=== PATIENT | male | born 1965 | race Caucasian/White ===

== ENCOUNTER → 2021-05-28 14:51 | Outpatient (BNVA) | payer OTHER, SELFPAY | PROVIDERS: Family Provider Family Medicine; PCP Family Medicine; Visit Provider Surgery | DX: Z20.822 Contact with and (suspected) exposure to COVID-19 (principal); Z11.52 Encounter for screening for COVID-19 | CPT/HCPCS: 87635 ==

== ENCOUNTER 2021-06-03 10:03 | Day surgery (SDC) | payer OTHER, SELFPAY ==
[2021-05-31 12:40] VITALS: BMI 31.9
[2021-06-03] VITALS (8 sets, daily range): BP systolic 137–165; BP diastolic 84–87; PULSE 58–64; RESP 12–18; TEMP 36.1–36.4; O2SAT 95–99
--- NOTE | 2021-06-03 10:12 | P.HP_ITS ---
Same Day Surgery H&P Indication for Procedure/HPI DATE OF PROCEDURE: June 03, 2021 CHIEF COMPLAINT/INDICATIONFOR SURGICAL PROCEDURE: Incarcerated incisional hernia PREOP DIAGNOSIS: incisional hernia PLANNED PROCEDRUE: Operation Date: 06/03/21 10:40 Proposed Procedures p Incisional Hernia Repair w/ Mesh [id number] k43.2(Not Applicable) - Addison Voss MD Medications/Allergies* Home Medications Medication Instructions Recorded Confirmed Type No Known Home Medications 04/29/21 05/31/21 History Allergies/Adverse Reactions Allergy/AdvReac Type Severity Reaction Status Date / Time No Known Allergies Allergy Verified 04/30/21 10:28 Pertinent History/Comorbid Conditions* Medical History (Updated 04/30/21 @ 10:55 by Addison Voss MD) Arthritis History of hepatitis C Surgical History (Updated 04/30/21 @ 10:45 by Addison Voss MD) History of colonoscopy (~2019) History of laparoscopic cholecystectomy 2008 Family History (Updated 04/30/21 @ 10:31 by Melissa Doll) Denies family history of Diabetes CAD (coronary artery disease) Dementia Chronic kidney disease (CKD) Lung disease Cancer Stroke Social History Smoking and tobacco status: never smoked Second hand smoke exposure: No Alcohol intake: never Lives independently: Yes Household members: spouse Marital status: Pertinent Exam Findings alert, oriented x 3 and regular rate & rhythm Recommendations Surgery/Procedure today Coding Level of Care Code Acute Sap Integration Architect for Vipul Pugh
[2021-06-03] MEDS: sodium chloride 0.9% 1,000 ML 30 ML IV (10:37)
--- NOTE | 2021-06-03 10:40 | ANES.PREANE2 ---
Pre-Anesthetic Assessment Pre-Anesthetic Assessment: Height/Weight: Height 1.73 m Weight 95.254 kg Temp Pulse Resp BP Pulse Ox 97.0 F L 58 L 18 165/84 97 06/03/21 10:14 06/03/21 10:14 06/03/21 10:14 06/03/21 10:14 06/03/21 10:14 Preop Diagnosis: incisional hernia Proposed Procedure: Operation Date: 06/03/21 10:40 Proposed Procedures p Incisional Hernia Repair w/ Mesh [id number] k43.2(Not Applicable) - Addison Voss MD Familial anesthetic complications: None Was Clonidine taken within 24 hours: N/A Last intake: Intake Last Liquid Date 06/02/21 Last Liquid Time 21:00 Last Solid Date 06/02/21 Last Solid Time 20:00 Social: Social History: No alcohol and No tobacco Exam: Pre-Anes Outpt Exam: alert, oriented x 3, clear to auscultation bilaterally and regular rate & rhythm Airway: Cervical ROM: WNL MP: 2 Dentition: Full Anesthetic Plan: ASA status: 1 Anesthesia: General Risk of > 500 ml blood loss (7ml/kg in children): No Meds/Allergies Current Medications: Current Medications Generic Name Dose Route Start Last Admin Trade Name Freq PRN Reason Stop Dose Admin Sodium Chloride 1,000 mls @ 30 ml s/hr 06/03/21 10:15 06/03/21 10:37 Sodium Chloride 0.9% IV 06/04/21 10:14 30 mls/hr .Q24H SUHA Administration PFSH Anesthesia PFSH: Medical History (Updated 04/30/21 @ 10:55 by Addison Voss MD) Arthritis History of hepatitis C Surgical History (Updated 04/30/21 @ 10:45 by Addison Voss MD) History of colonoscopy (~2019) History of laparoscopic cholecystectomy 2009 Family History (Updated 04/30/21 @ 10:31 by Melissa Doll) Denies family history of Diabetes CAD (coronary artery disease) Dementia Chronic kidney disease (CKD) Lung disease Cancer Stroke Social History (Updated 04/30/21 @ 10:32 by Melissa Doll) Smoking and tobacco status: never smoked Second hand smoke exposure: No Alcohol intake: never Lives independently: Yes Household members: spouse Marital status: Data Anesthesia Cardiac Studies: No Data to Display
[2021-06-03] MEDS: fentaNYL 50 mcg/mL INJ 2mL IVP ×2 (11:46→11:51)
--- NOTE | 2021-06-03 11:46 | P.PCN_ITS ---
PACU note PACU note: VSS, Good respiratory effort, report to [employer] Post-Anesthesia Exam: awake
--- NOTE | 2021-06-03 11:46 | PM.PACU ---
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
[2021-06-03] MEDS: HYDROcodone-acetaminophen 5-325 mg Tablet 1 TAB PO (12:58)
--- NOTE | 2021-06-03 13:05 | PM.OP ---
Operative Report Date of procedure: June 03, 2021 Pre-op Diagnosis: 1. Incisional hernia epigastric region 2. Status post laparoscopic cholecystectomy Post-op Diagnosis: Incisional hernia containing preperitoneal fat in the epigastric region measuring 3.5 x 3.5 cm Procedure Done: Open repair of incisional hernia Implantation of ventral light 3 x 3 inch mesh Pathology: none sent Surgeon: Addsion Voss Anesthesia: General Condition: stable Disposition: PACU Procedure: The patient was taken to the operating room and intubated under general anesthesia after IV antibiotic had been administered. The abdomen was prepped and draped in a sterile manner. Using a 15 blade 4 cm transverse incision was made over the existing scar, subcutaneous tissue was divided using electrocautery and hernia defect measuring about 3.5 x 3.5 cm identified. I was able to bluntly reduce the hernia and create a preperitoneal space for placement of mesh. Ventralight 3 x 3 inch mesh was placed in the preperitoneal space and secured with 2-0 Prolene sutures. The fascia was approximated using [id number] 2-0 Prolene sutures. The wound was irrigated with saline, hemostasis ensured and the subcutaneous tissues were approximated using interrupted 3-0 Vicryl suture and skin was closed using running subcuticular 4-0 Monocryl suture and Dermabond. 10 cc of 0.5% Marcaine was infiltrated around the incision. The patient was extubated and transferred to recovery room in stable condition.
--- NOTE | 2021-06-03 15:13 | ANE.PACU2 ---
Inpatient post-anesthesia follow up: Airway intact: Yes Vital signs: Temperature 97.6 F Pulse Rate 61 Respiratory Rate 13 Blood Pressure 145/87 Pulse Oximetry 95 Oxygen Delivery Me thod Room Air Oxygen Flow Rate Fraction of Inspir ed Oxygen Hydration adequate: Yes Nausea and vomiting: No Pain level: 2 Mental status: Baseline
== END 2021-06-03 13:05 | disposition home or self-care (01) ==
PROVIDERS: PCP Family Medicine; Visit Provider Surgery
PROC: (CPT 49560; principal; 2021-06-03 10:40)
DX: K43.2 Incisional hernia without obstruction or gangrene (principal); Z98.890 Other specified postprocedural states; Z90.49 Acquired absence of other specified parts of digestive tract; M19.90 Unspecified osteoarthritis, unspecified site; Z86.19 Personal history of other infectious and parasitic diseases
CPT/HCPCS: 49560; 49568; J0690; J1100; J2405; J2704; J2710; J3010; J3490; J7030

== ENCOUNTER 2022-10-29 06:10 | Outpatient (CLI) | payer OTHER, SELFPAY ==
--- NOTE | 2022-10-29 07:14 | MR_ITS ---
WS: [id number] MRI BRAIN WITH HIGH-RESOLUTION IMAGING THROUGH THE INTERNAL AUDITORY CANALS WITHOUT AND WITH CONTRAST HISTORY: SENSORINEURAL HEARING LOSS COMPARISON: None available. TECHNIQUE: Multiplanar, multisequence imaging is performed through the brain. Additional 3 mm imaging performed in multiple planes through the internal auditory canal. Postcontrast imaging with 20 ml's of MultiHance. No acute intracranial hemorrhage, midline shift, edema or mass effect. Normal diffusion-weighted imaging. There are a few scattered T2 and FLAIR signal hyperintensities fro m small vessel ischemic disease. No prior infarcts. Ventricles and extra-axial spaces are normal. No inferior displacement of cerebellar tonsils. Clivus and pituitary gland are normal. Internal and external auditory canals: Unremarkable. Cranial nerves VII and VIII complexes: Unremarkable. No enhancement or mass. Cerebellopontine angles: Normal. Paranasal sinuses: Normal. Mastoid air cells: Normal. Calvarium and scalp: Normal. Visualized [place] and dural venous sinuses demonstrate no abnormality. MR/MR iac's wo/w con* [id number] IMPRESSION: 1. No acute infarct, hemorrhage or mass. 2. Negative MRI internal auditory canals. No mass or abnormal enhancement. 3. Normal Meckel's cave. 4. Mild small vessel ischemic changes.
[2022-10-29] MEDS: gadobenate dimeglumine 20 mL vial IV (08:03)
== END 2022-10-29 06:11 | disposition home or self-care (01) ==
LOC: RAD 06:12
PROVIDERS: PCP Family Medicine; Visit Provider Specialist
DX: H90.5 Unspecified sensorineural hearing loss (principal)
CPT/HCPCS: 70553; A9577